=== PATIENT | female | born 1965 | race American Indian/Alaskan Native ===

== ENCOUNTER 2017-07-24 18:28 | Emergency (ER) | payer SELFPAY ==
[2017-07-24 18:37] VITALS: BP 156/86
--- NOTE | 2017-07-24 18:39 | Emergency Department Report ---
Stated Complaint: ELEVATED BP Time Seen by Provider: 07/24/17 18:36 - HPI History of Present Illness: PT c/o headache while visiting her friend in the ED. PT states she thinks her bp might be elevated because she has not taken her medication for 1 year - ROS Review of Systems: + increased thirst + urinary frequency - Exam Physical Exam: obese female. no acute distress gcs 15 MSE screening note: Focused history and physical exam performed. Due to findings the following was ordered: labs ED Disposition for MSE Condition: Stable
[2017-07-24 19:14] LABS: Basophils % (Auto) 0.5 % (0.0-1.8); Hematocrit 40.6 % (30.3-42.9); Hemoglobin 12.8 gm/dl (10.1-14.3); Mean Corpuscular HGB Conc 31 % (30-34); Mean Corpuscular Volume 80 fl (79-97); Platelet Count 238 K/mm3 (140-440); Red Cell Distribution Width 13.7 % (13.2-15.2); White Blood Count 7.4 K/mm3 (4.5-11.0)
[2017-07-24 19:23] LABS: Mean Corpuscular Hemoglobin 25 pg (28-32)
[2017-07-24 19:24] LABS: Anion Gap 14 mmol/L; Blood Urea Nitrogen 8 mg/dL (7-17); Calcium 9.5 mg/dL (8.4-10.2); Carbon Dioxide 28 mmol/L (22-30); Chloride 105.7 mmol/L (98-107); Glucose 111 mg/dL (65-100); Potassium 4.1 mmol/L (3.6-5.0); Sodium 144 mmol/L (137-145)
[2017-07-24 19:30] LABS: Bacteria,Urine 1+ /HPF (Negative); Bilirubin,Urine NEG (Negative); Blood,Urine NEG (Negative); Ketones,Urine NEG (Negative); Leukocyte Esterase,Urine LG (Negative); Mucus,Urine FEW /HPF; Nitrite,Urine NEG (Negative); Protein,Urine <15 mg/dL mg/dL (Negative); Urobilinogen,Urine < 2.0 mg/dL (<2.0)
== END 2017-07-24 19:13 | disposition left against medical advice (07) ==
LOC: ED 18:28
DX: R03.0 Elevated blood-pressure reading, without diagnosis of hypertension (principal); Z53.21 Procedure and treatment not carried out due to patient leaving prior to being seen by health care provider
CPT/HCPCS: 36415; 80048; 81001; 85025

== ENCOUNTER 2017-08-23 12:31 | Emergency (ER) | payer SELFPAY ==
[2017-08-23 12:54] VITALS: BP 123/61
--- NOTE | 2017-08-23 14:13 | XRay Report ---
The right hip 2 views: History: Fall. Findings: No recent fracture or dislocation. No soft tissue calcification. Bony density adjacent to the superior lateral aspect of hip joint is probably related to old injury with detached osteophyte. CT scan recommended if recent fracture is suspected. Impression Findings as detailed above.
--- NOTE | 2017-08-23 14:14 | XRay Report ---
Right knee 2 views: History: Fall. Findings: Marked narrowing of medial lateral and patellofemoral compartment knee joint. Sclerotic articular surfaces with peripheral osteophytes suggestive severe degenerative changes. No fracture. No soft tissue calcification. Impression: Severe degenerative changes right knee.
--- NOTE | 2017-08-23 14:25 | Emergency Department Report ---
ED Fall HPI - General Chief Complaint: Fall Stated Complaint: FALL Time Seen by Provider: 08/23/17 13:47 Source: patient, family, EMS Mode of arrival: Stretcher (came via EMS) Limitations: Physical Limitation - History of Present Illness Initial Comments: Patient reported that she fell on the floor after stepping into events in her floor at her apartment. She says she told him about the dentist in the floor a while back and follows accidental. She denies any dizziness or lightheadedness prior to falling. She denies any head injury or nausea. Denies any visual difficulties. She is complaining of pain to her right hip and right knee that is 10 out of 10 and achy and worse with movement better resting. Patient says she took [id number] pain medication but it didn't help. Pain is localized to right hip and right knee. Denies any other injuries. MD Complaint: fall -: This afternoon Fall From: standing Fall Witnessed: yes, by family (wall was witnessed by her roommate) Place Fall Occurred: home Loss of Consciousness: none Prolonged Down Time?: no Symptoms Prior to Fall: none Location - Extremities: Right: Knee (right hip and knee) Severity: severe Severity scale (0 -10): 10 Quality: aching Context: tripped/slipped Associated Symptoms: denies: headache, neck pain, numbness, weakness, chest paint, shortness of breath, abdominal pain, hematuria, unable to walk, lightheaded, vertigo, confusion - Related Data Previous Rx's Medication Instructions Recorded Last Taken Type traMADol [Ultram] 50 mg PO Q6HR PRN #12 tablet 08/23/17 Unknown Rx Allergies Allergy/AdvReac Type Severity Reaction Status Date / Time No Known Allergies Allergy Unverified 08/23/17 12:54 ED Review of Systems ROS: Stated complaint: FALL Other details as noted in HPI Comment: All other systems reviewed and negative Constitutional: no symptoms reported Eyes: denies: vision change Respiratory: no symptoms reported Cardiovascular: denies: chest pain, palpitations, dyspnea on exertion, edema, syncope, paroxysmal nocturnal dyspnea Gastrointestinal: denies: abdominal pain, nausea, vomiting, diarrhea Genitourinary: denies: urgency, dysuria, frequency, hematuria, discharge, abnormal menses Musculoskeletal: arthralgia. denies: back pain, joint swelling, myalgia Skin: denies: rash Neurological: abnormal gait (due to fall and right hip and knee pain). denies: headache, weakness, numbness, paresthesias, confusion ED Past Medical Hx - Past Medical History Previous Medical History?: Yes Hx Hypertension: Yes Hx Headaches / Migraines: Yes - Surgical History Past Surgical History?: Yes Additional Surgical History: - Family History Family history: hypertension - Social History Smoking Status: Never Smoker Substance Use Type: None Other Social History: She lives a roommate - Medications Home Medications: Home Medications Medication Instructions Recorded Confirmed Last Taken Type traMADol [Ultram] 50 mg PO Q6HR PRN #12 tablet 08/23/17 Unknown Rx ED Physical Exam - General Limitations: No Limitations General appearance: alert, in no apparent distress - Head Head exam: Present: atraumatic, normocephalic, normal inspection - Eye Eye exam: Present: normal appearance, PERRL, EOMI. Absent: nystagmus, periorbital swelling, periorbital tenderness - Neck Neck exam: Present: normal inspection, full ROM. Absent: tenderness, meningismus, lymphadenopathy - Expanded Neck Exam Expanded Neck exam: Absent: tenderness, midline deformity, anterior neck swelling, tracheal deviation - Respiratory Respiratory exam: Present: normal lung sounds bilaterally. Absent: respiratory distress, chest wall tenderness - Cardiovascular Cardiovascular Exam: Present: regular rate, normal rhythm, normal heart sounds. Absent: systolic murmur, diastolic murmur - GI/Abdominal GI/Abdominal exam: Present: soft, normal bowel sounds. Absent: distended, tenderness, guarding, rebound, rigid - Extremities Exam Extremities exam: Present: normal inspection, tenderness, normal capillary refill, other (patient with no clubbing, cyanosis or edema. No neurovascular compromise to extremities. +2 pulses to all extremities.). Absent: full ROM ( range of motion to right knee.), pedal edema, joint swelling, calf tenderness - Expanded Lower Extremity Exam Right Hip exam: Present: normal inspection, full ROM, pelvic stability. Absent: tenderness, swelling, abrasion, laceration, ecchymosis, deformity, crepidus, dislocation, erythema, external rotation, internal rotation, shortening Upper Leg exam: Present: normal inspection, full ROM. Absent: tenderness, swelling, abrasion, laceration, ecchymosis, deformity, crepidus, dislocation, erythema Knee exam: Present: normal inspection, tenderness, full knee extension. Absent : full ROM (his range of motion to right knee. Patient able to flex and extend her right knee but reports that it is painful.), swelling, abrasion, laceration , ecchymosis, deformity, crepidus, dislocation, erythema, effusion, pain w/ pronation/supination, posterior draw sign, pain/laxity with valgus, pain/laxity with varus Lower Leg exam: Present: normal inspection, full ROM. Absent: tenderness, swelling, abrasion, laceration, ecchymosis, deformity, crepidus, dislocation, erythema, palpable cord Ankle exam: Present: normal inspection, full ROM. Absent: tenderness, swelling , abrasion, laceration, ecchymosis, deformity, crepidus, dislocation, erythema Foot/Toe exam: Present: normal inspection, full ROM. Absent: tenderness, swelling, abrasion, laceration, ecchymosis, deformity, crepidus, dislocation, erythema, amputation, puncture wound, foreign body, calcaneal tenderness, tenderness at base of 5th metatarsal, nail avulsion, subungual hematoma Neuro vascular tendon exam: Present: no vascular compromise. Absent: pulse deficit, abnormal cap refill, motor deficit, sensory deficit, tendon deficit, extremity cold to touch, pallor, abnormal 2-point discrimination, decreased fine /light touch, foot drop, peroneal nerve deficit, significant pain with passive ROM of distal joint Gait: Positive: observed and limited by pain (patient able to get out of bed and ambulate , minimal pain noted with ambulation.) - Back Exam Back exam: Present: normal inspection, full ROM. Absent: tenderness, CVA tenderness (R), CVA tenderness (L), muscle spasm, paraspinal tenderness, vertebral tenderness, rash noted - Psychiatric Psychiatric exam: Present: normal affect, normal mood - Skin Skin exam: Present: warm, dry, intact, normal color. Absent: rash ED Course Vital Signs 08/23/17 12:48 Temperature 97.9 F Pulse Rate 67 Respiratory 16 Rate Blood Pressure 123/61 Blood Pressure 123/61 [Left] O2 Sat by Pulse 98 Oximetry - Reevaluation(s) Reevaluation #1: 08/23/17 16:00 Patient given Toradol 60 mg IM for pain and right hip and right knee secondary to fall. Reevaluation #2: 08/23/17 1700 Patient reports that pain is not completely relieved so she was given Percocet 5 /325 mg one tablet by mouth. X-ray of right knee reveals severe degenerative arthritis. No acute fracture or dislocation seen. X-ray of right done and radiologist recommended the patient have CT scan of her right hip via forced CT scan done and results are pending. Reevaluation #3: 08/23/17 18:59 Patient voiced relief of pain upon reevaluation. She is stable and able to ambulate interim without any difficulties or any ambulatory aid. CT scan of the right hip revealed degenerative changes. No acute fracture or dislocation. ED Medical Decision Making - Radiology Data Radiology results: report reviewed X-ray of right knee reports showed severe degenerative osteoarthritis without any acute fracture or dislocation. X-ray of right hip was done and radiologist recommended CT scan of right hip which showed osteoarthritis. - Medical Decision Making ED course: Pt to hospital via EMS accompanied by her roommate. Patient reports that she accidentally fall from ground level and injured her right hip and left knee. Patient had x-ray of right knee which showed severe degenerative arthritis and x-ray of Rt hip which radiologist recommended CT scan of her right hip and it showed patient with mild degeneration. Patient was given Motrin 800 mg emergency room which she said did not relieve her pain completely she was then given Percocet 5/325 mg one tablet by mouth and she said that helped her pain. Patient is able to ambulate without any difficulties in room. She says she has some pain to her hip. Patient is requesting pain medication to be discharged home with. I gave her the results of her hip and x-ray results. Her urinalysis was negative for any urinary tract infection. I discussed with patient that she will need to follow-up with orthopedic doctor regarding severe arthritis of her right knee and osteoarthritis of right hip. She voiced understanding and discharge diagnoses treatment plan and discharged home with her daughter and roommate in stable condition with prescription for Ultram. Critical care attestation.: If time is entered above; I have spent that time in minutes in the direct care of this critically ill patient, excluding procedure time. ED Disposition Clinical Impression: Arthralgia of multiple sites Accidental fall Qualifiers: Encounter type: initial encounter Qualified Code(s): W19.XXXA - Unspecified fall, initial encounter Osteoarthritis of multiple joints Qualifiers: Osteoarthritis type: unspecified Qualified Code(s): M15.9 - Polyosteoarthritis , unspecified Disposition: DC-01 TO HOME OR SELFCARE Is pt being admited?: No Does the pt Need Aspirin: No Condition: Stable Instructions: Osteoarthritis (ED), Fall Prevention (ED), Patellofemoral Pain Syndrome (ED), Knee Pain (ED), Arthralgia (ED), Knee Exercises (GEN) Additional Instructions: Follow-up with orthopedic doctor as instructed Take Ultram as prescribed but do not drive or operate heavy machinery as this medication can cause drowsiness Prescriptions: traMADol [Ultram] 50 mg PO Q6HR PRN #12 tablet PRN Reason: Pain Referrals: KEVIN BOND MD [Staff Physician] - 08/28/[address] [facility] [Outside] - 08/28/17
[2017-08-23] MEDS ORDERED: TORADOL IM ONE (15:09)
[2017-08-23] MEDS ORDERED: NACL ONE (16:29)
[2017-08-23] MEDS ORDERED: PERCOCET 5/325 PO ONE (16:52)
--- NOTE | 2017-08-23 18:42 | Cat Scan Report ---
FINAL REPORT PROCEDURE: CT LOWER EXTREMITY RT WO CON TECHNIQUE: Computerized axial tomography of the right hip was performed without contrast. HISTORY: Right hip pain COMPARISON: No prior studies are available for comparison. FINDINGS: Normal appendix is partially included on the study. No abnormalities are seen with right hip musculature. Mild changes of right-sided sacroiliitis are seen with vacuum phenomena. Mild osteoarthritic changes are seen in the right hip. Small bony density is seen associated with the posterior roof of the acetabulum which is corticated. This is likely old fracture or normal variant non fusion of the apophysis. IMPRESSION: Mild osteoarthritic changes are seen in the right hip.
== END 2017-08-23 19:25 | disposition home or self-care (01) ==
LOC: ED 12:31
DX: M25.561 Pain in right knee (principal); M25.551 Pain in right hip; I10 Essential (primary) hypertension; G43.909 Migraine, unspecified, not intractable, without status migrainosus; M19.90 Unspecified osteoarthritis, unspecified site
CPT/HCPCS: 73502; 73560; 73700; 82962; 96372; 99284; J1885

== ENCOUNTER 2019-01-03 11:45 | Emergency (ER) | payer MEDICARE ==
[2019-01-03 11:52] VITALS: BP 141/77
--- NOTE | 2019-01-03 11:53 | Emergency Department Report ---
Blank Doc - Documentation Documentation: This is a 53-year-old female that presents with headache and intermittent dizz iness x3 weeks. Denies worst headache or tunderclap headache. Denies any visual changes. Patient denies any head trauma. Denies any neuro deficits. Normal neuro exam. Will order labs Sent to [facility] for further evaluation and treatment
[2019-01-03 12:51] LABS: Basophils % (Auto) 0.7 % (0.0-1.8); Eosinophils # (Auto) 0.1 K/mm3 (0.0-0.4); Eosinophils % (Auto) 1.6 % (0.0-4.3); Hematocrit 44.7 % (30.3-42.9); Hemoglobin 14.5 gm/dl (10.1-14.3); Lymphocytes # (Auto) 2.2 K/mm3 (1.2-5.4); Lymphocytes % (Auto) 38.2 % (13.4-35.0); Mean Corpuscular HGB Conc 32 % (30-34); Mean Corpuscular Volume 80 fl (79-97); Monocytes # (Auto) 0.4 K/mm3 (0.0-0.8); Platelet Count 301 K/mm3 (140-440); Red Blood Count 5.61 M/mm3 (3.65-5.03); Red Cell Distribution Width 13.2 % (13.2-15.2)
[2019-01-03 13:01] LABS: BUN/Creatinine Ratio 13; Blood Urea Nitrogen 10 mg/dL (7-17); Calcium 9.2 mg/dL (8.4-10.2); Hemolysis Index 3
[2019-01-03] MEDS ORDERED: ZESTRIL PO ONE (13:28)
--- NOTE | 2019-01-03 13:32 | Emergency Department Report ---
ED Recheck HPI - General Chief Complaint: Headache Stated Complaint: MIGRANE HEADACHE Time Seen by Provider: 01/03/19 11:53 Source: patient, EMS Mode of arrival: Ambulatory Limitations: No Limitations - History of Present Illness Symptoms Since Prior Visit: no new symptoms - Related Data Previous Rx's Medication Instructions Recorded Last Taken Type Lisinopril [Zestril TAB] 5 mg PO ONCE #30 tablet 01/03/19 Unknown Rx Allergies Allergy/AdvReac Type Severity Reaction Status Date / Time No Known Allergies Allergy Unverified 08/23/17 12:54 ED Review of Systems ROS: Stated complaint: MIGRANE HEADACHE Other details as noted in HPI Comment: All other systems reviewed and negative ED Past Medical Hx - Past Medical History Hx Hypertension: Yes Hx Headaches / Migraines: Yes - Surgical History Additional Surgical History: - Social History Smoking Status: Never Smoker Substance Use Type: None - Medications Home Medications: Home Medications Medication Instructions Recorded Confirmed Last Taken Type Lisinopril [Zestril TAB] 5 mg PO ONCE #30 tablet 01/03/19 Unknown Rx ED Physical Exam - General Limitations: No Limitations General appearance: alert - Head Head exam: Present: atraumatic - Eye Eye exam: Present: normal appearance, PERRL Pupils: Present: normal accommodation - ENT ENT exam: Present: normal exam, mucous membranes moist - Neck Neck exam: Present: normal inspection - Respiratory Respiratory exam: Present: normal lung sounds bilaterally - Cardiovascular Cardiovascular Exam: Present: regular rate - GI/Abdominal GI/Abdominal exam: Present: soft, normal bowel sounds - Rectal Rectal exam: Present: deferred - Extremities Exam Extremities exam: Present: normal inspection, full ROM - Back Exam Back exam: Present: normal inspection, full ROM - Neurological Exam Neurological exam: Present: alert, oriented X3, CN II-XII intact, normal gait - Psychiatric Psychiatric exam: Present: normal affect, normal mood - Skin Skin exam: Present: warm, dry, intact ED Course Vital Signs 01/03/19 01/03/19 11:49 13:49 Temperature 99 F Pulse Rate 94 H 94 H Respiratory 18 Rate Blood Pressure 141/77 141/77 O2 Sat by Pulse 99 Oximetry ED Recheck MDM - Medical Decision Making med refill only Critical care attestation.: If time is entered above; I have spent that time in minutes in the direct care of this critically ill patient, excluding procedure time. ED Disposition Clinical Impression: Hypertension, Medication refill Disposition: DC-01 TO HOME OR SELFCARE Is pt being admited?: No Does the pt Need Aspirin: No Condition: Stable Instructions: Low Sodium Diet (ED), Hypertension (ED) Additional Instructions: HYDRATE WELL WITH WATER MEDS ORDERED TODAY LOW SALT DIET NO FAST FOOD NO FRIED FOOD FOLLOW UP WITH PCP REFERRAL BELOW Prescriptions: Lisinopril [Zestril TAB] 5 mg PO ONCE #30 tablet Referrals: PEDRITO ANSARI DO [Staff Physician] - 3-5 Days Time of Disposition: 13:29
== END 2019-01-03 14:03 | disposition home or self-care (01) ==
LOC: ED 11:45
DX: I10 Essential (primary) hypertension (principal); Z76.0 Encounter for issue of repeat prescription; G43.909 Migraine, unspecified, not intractable, without status migrainosus
CPT/HCPCS: 36415; 80048; 85025; 99284